=== PATIENT | female | born 1970 | race African-American/Black ===

== ENCOUNTER 2017-06-14 00:57 | Emergency (ER) | payer OTHER ==
[~2017-06-14] VITALS: Ht 167.6 cm; Wt 114.8 kg
[~2017-06-14 00:57] MED LIST: FLEXERIL PO; PHENERGAN 25 MG25 M1 PO; ZANTAC 150MG T150 MG PO
[2017-06-14] MEDS ORDERED: MOBIC15 MG PO (02:56)
== END 2017-06-14 03:45 | disposition home or self-care (01) ==
LOC: ER 00:57
DX: S46.912A Strain of unspecified muscle, fascia and tendon at shoulder and upper arm level, left arm, initial encounter (principal); X58.XXXA Exposure to other specified factors, initial encounter; Y93.89 Activity, other specified; Y92.89 Other specified places as the place of occurrence of the external cause; Y99.8 Other external cause status

== ENCOUNTER 2020-07-19 21:13 | Inpatient (IN) | payer OTHER ==
[~2020-07-19] VITALS: Ht 167.6 cm; Wt 106.6 kg
[~2020-07-19 21:13] MED LIST changes: +MOBIC15 MG PO
[2020-07-19 21:27] VITALS: BP 176/87
[2020-07-19] MEDS ORDERED: PROTONIX40 M2 PO (21:29)
[2020-07-19] MEDS ORDERED: IBUPROFEN 800800 M1 PO (21:30)
[2020-07-19 21:57] LABS: URINE BILIRUBIN 1+ (Negative); URINE BLOOD 3+ (Negative); URINE CLARITY CLEAR; URINE COLOR YELLOW; URINE GLUCOSE-RANDOM* NEGATIVE (Negative); URINE KETONES 3+ (Negative); URINE LEUKOCYTES-REFLEX NEGATIVE (Negative); URINE NITRITE-REFLEX NEGATIVE (Negative); URINE PROTEIN (DIPSTICK) NEGATIVE (Negative); URINE SPECIFIC GRAVITY 1.025 (1.005-1.035)
[2020-07-19 22:12] LABS: URINE REDUCING SUBSTANCE NEGATIVE
[2020-07-19 22:13] LABS: ICTOTEST (BILI CONFIRMATORY) Negative (Negative)
[2020-07-19 22:20] LABS: SQUAMOUS >10 Many /LPF (0-3)
[2020-07-19 22:21] LABS: CASTS None Seen /LPF (None Seen); MUCUS 4-6 Moderate strn/LPF (None Seen)
[2020-07-19 22:22] LABS: URINE RBC 3-10 Few /HPF (0-2); URINE WBC-REFLEX 0-5 Rare /HPF (0-5)
[2020-07-19 22:22] LABS: ABSOLUTE NEUTROPHILS 6.2 thou/uL (1.4-8.2); BASOPHILS 0.4 % (0.0-2.0); EOSINOPHILS 0.4 % (0.0-3.0); HEMATOCRIT 39.4 % (37.0-47.0); HEMOGLOBIN 13.4 gm/dL (12.0-15.0); LYMPHOCYTES 18.6 % (24.0-44.0); MCH 30.2 pg (26.0-34.0); MCHC 34.1 g/dL (28.0-37.0); MCV 88.6 fL (80.0-100.0); MONOCYTES 6.9 % (1.0-8.0); PLATELET COUNT 332 thou/uL (150-400); POLYS 73.7 % (36.0-66.0); RBC 4.45 mil/uL (4.20-5.00); RDW 15.8 % (10.5-14.5); WBC 8.4 thou/uL (4.0-11.0)
[2020-07-19 22:23] LABS: BACTERIA-REFLEX 1-9 Few /HPF (None Seen); CRYSTALS None Seen /LPF (None Seen)
[2020-07-19 22:28] LABS: CALCIUM 8.7 mg/dL (8.5-10.1); CREATININE 0.7 mg/dL (0.6-1.0); POTASSIUM 3.4 mmol/L (3.5-5.1)
[2020-07-19 22:35] LABS: ALBUMIN 3.5 g/dL (3.4-5.0); TOTAL BILIRUBIN 0.4 mg/dL (0.2-1.0); TOTAL PROTEIN 7.6 g/dL (6.4-8.2)
[2020-07-20 03:57] VITALS: BP 132/71
[2020-07-20 04:31] VITALS: BP 126/58
[2020-07-20 04:46] VITALS: BP 128/83
--- NOTE | 2020-07-20 06:26 | NUR ---
ASSUMED CARE OF PT FROM [place] 0420HRS. PT IS AOX4 AND LETS NEEDS BE KNOWN. PT IS UP AD NORAH. PT WAS ORIENTED TO THE UNIT AND HER ROOM. PT WAS MARII TO ANSWER ALL ADMISSION RELATED QUESTIONS. PT CAME IN FOR ABDOMINAL PAIN AND CURRENTY RATES PAIN AT 2. PT DENIED NAUSEA OR SOA. ASSESSMENT CHARTED. AM RN TO COMPLETE ADMISSION. VSS AND NO S/S OF ACUTE DISTRESS. WILL CONTINUE TO MONITOR.
[2020-07-20 07:25] VITALS: BP 132/58
--- NOTE | 2020-07-20 07:41 | EKG ---
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: amanda : 1970 Requested By: Jerry Garsia Order Number: [id number] MD: Monty Sweet Measurements Intervals [place] Rate: 67 P: 57 ME: 138 QRS: 21 QRSD: 75 T: 9 QT: 398 QTc: 420 Interpretive Statements Sinus rhythm Multiple premature complexes, vent & supraven Compared to ECG 09/23/2016 18:45:32 No significant changes Electronically Signed On 07-20-2020 7:41:35 CDT by Monty Sweet [email or web address] <ELECTRONICALLY SIGNED> By: Monty Sweet MD, [facility] 07/20/20 0741 [id number] 03 Monty Sweet MD, FAC /EPI
--- NOTE | 2020-07-20 08:55 | NUR ---
ASSESSMENT: CM REVIEWED CHART AND SPOKE WITH PATIENT AT THE BEDSIDE. PT IS ALERT AND ORIENTED X4. PT WAS ADMITTED DUE TO ABDOMINAL PAIN. PT REPORTS THAT SHE LIVES IN A HOUSE ALONE. PT REPORTS SHE HAS ABOUT 6 STEPS WITH HANDRAIL TO ENTER THE HOME AND ABOUT 5 STEPS WITH HANDRAILS TO HER BEDROOM. PT REPORTS THAT SHE IS FULLY INDEPENDENT WITH ADLS AND AMBULATION. PT REPORTS NO HX OF HH OR SNF. PT REPORTS HER PCP IS DR. TOMASZ ACOSTA. CM DISCUSSED ROLE. PT DOES NOT ANTICIPATE HAVING ANY NEEDS FROM CM. CM WILL CONTINUE TO FOLLOW TO ASSIST NEEDED.
--- NOTE | 2020-07-20 10:59 | NUR ---
Assumed pt care this am. Finished admission this am. Pt is alert & oriented x4. Pt c/o of pain on L LQ abdominal and back. Given pain medication. Pt has iv site on L AC 20 gauge saline locked. Pt on NPO. Informed Dr Miguel Angel ngo potassium this am. Pt is on room air. Pt is up ad cole. Pt on the bed sleeping, bed on the lowest position, side rails up, and call light within reach. Will continue to monitor pt.
[2020-07-20] MEDS ORDERED: NORCO5 PO (12:00)
[2020-07-20 16:16] VITALS: BP 153/75
[2020-07-20 19:02] VITALS: BP 121/66
--- NOTE | 2020-07-20 23:59 | NUR ---
ASSESMENT COMPLETED.PT UP AD NORAH. PAIN REMAINS IN THE LLQ, RATES IT AT 2-6. NORCO GIVEN . DR STEVENS OKAY WITH PATIENT EATING REGULAR FOOD TILL THE AM THEN REVERT TO CLR LIQUIDS. PT INFORMED, GIVEN SANDWICH BOX MEAL WHICH SHE ATE WELL WITHOUT ANY NAUSEA.PT APPEARS TO BE IN NO DISTRESS, SHE IS AFEBRILE, PASSING GAS, VOIDING ADEQUATELY. NO FURTHER CONCERNS AT THIS TIME. CONTINUES ON IVF.
[2020-07-21 07:58] VITALS: BP 141/81
--- NOTE | 2020-07-21 10:28 | NUR ---
Assumed care of pt at 0700. Pt a&ox4. LLQ abdominal pain controlled with prn pain meds. IVF infusing. Up ad cole in the room. On clear liquid diet. Tolerating diet well. Call light within reach. Will continue to monitor.
--- NOTE | 2020-07-21 13:26 | NUR ---
on-going assessment: cm reviewed chart. PLANS ARE FOR PATIENT TO DISCHARGE HOME TODAY. PT REPORTS SHE WILL HAVE TRANSPORTATION HOME. CM WILL CONTINUE TO FOLLOW TO ASSIST NEEDED.
[2020-07-21 15:42] VITALS: BP 141/81
== END 2020-07-21 16:36 | disposition home or self-care (01) | DRG 446 ==
LOC: ER 21:13 → EROBS 07-20 03:42 → 4S 07-20 03:42
PROVIDERS: Emergency Medicine; Nurse Practitioner; ADMIT Hospitalist; ATTEND Hospitalist
DX: K80.80 Other cholelithiasis without obstruction (principal); K21.9 Gastro-esophageal reflux disease without esophagitis; D25.9 Leiomyoma of uterus, unspecified; F12.90 Cannabis use, unspecified, uncomplicated; E66.9 Obesity, unspecified; N83.202 Unspecified ovarian cyst, left side; N83.201 Unspecified ovarian cyst, right side; E87.6 Hypokalemia; F17.210 Nicotine dependence, cigarettes, uncomplicated; Z79.899 Other long term (current) drug therapy; Z68.37 Body mass index [BMI] 37.0-37.9, adult
CPT/HCPCS: 10195